=== PATIENT | male | born 1975 | race Caucasian/White ===

== ENCOUNTER 2016-11-30 18:44 | Emergency (ER) | payer MEDICAID ==
[~2016-11-30] VITALS: Ht 167.6 cm; Wt 64.0 kg
[2016-11-30 18:59] VITALS: Ht 167.6 cm; Wt 64.0 kg
[2016-11-30] MEDS ORDERED: LIDOCAINE 1% (MDV) 10 ML INJ INJ STA (21:46)
--- NOTE | 2016-11-30 21:59 | ERD ---
ER Documentation Chief Complaint Date/Time DATE: 11/30/16 TIME: 21:57 Chief Complaint laceration left foot HPI 41-year-old male presents to the laceration on the medial aspect of his left ankle he sustained today with a piece of glass. He is ambulatory. Denies possibility retained foreign body. Pain is mild to moderate. He is not on any blood thinners. Unsure last tetanus vaccination. ROS All systems reviewed and are negative except as per history of present illness. Allergies Allergies: Coded Allergies: No Known Allergy (Unverified , 11/30/16) FmHx Family History: No diabetes Physical Exam Vitals Vital Signs Date Time Temp Pulse Resp B/P Pulse Ox O2 Delivery O2 Flow Rate FiO2 11/30/16 18:59 97.8 71 20 131/83 100 Physical Exam Const: [] Head: Atraumatic Eyes: Normal Conjunctiva ENT: Normal External Ears, Nose and Mouth. Neck: Full range of motion..~ No meningismus. Resp: Clear to auscultation bilaterally Cardio: Regular rate and rhythm, no murmurs Abd: Soft, non tender, non distended. Normal bowel sounds Skin: Left medial ankle has small to centimeter laceration that is superficial, no active bleeding or drainage, no evidence of retained foreign body Results 24 hrs Current Medications Medications (Trade) Dose Ordered Sig/Bhavik Route PRN Reason Start Time Stop Time Status Last Admin Dose Admin Diphtheria/ Tetanus/Acell Pertussis (Adacel) 0.5 ml ONCE ONCE IM 11/30/16 22:00 11/30/16 22:01 Lidocaine HCl (Lidocaine 1% (Mdv) 10 ml) 10 ml ONCE STAT INJ 11/30/16 21:46 11/30/16 21:47 DC Procedures/MDM Patient was given a tetanus vaccination. The skin edges of the laceration were infiltrated with 1% lidocaine . The laceration was irrigated with copious amounts of normal saline. The wound was prepped with Betadine. On examination under direct light, there was no foreign body seen. The laceration was repaired with simple interrupted sutures. After repair, there was no continuing bleeding on repair and there did not appear to be any complication related to repair. The patient tolerated the procedure well and the wound was appropriately dressed and bandaged. I recommended the patient return in 2 days for a wound check and 7-10 days for removal of sutures. Patient counseled regarding my diagnostic impression and care plan. Prior to discharge all questions answered. Pt agrees with treatment plan and understands strict return precautions. Pt is instructed to follow up with primary care provider within 24-48 hours. Precautionary instructions provided including instructions to return to the ER if not improving or for any worsening or changing symptoms or concerns. Departure Diagnosis: Primary Impression: Laceration Condition: Stable SHARRI BEJARANO PA-C Nov 30, 2016 21:59
[2016-11-30] MEDS ORDERED: DIPHTH/TET/ACEL PERTUSS (ADULT) 0.5 ML VIAL IM ONE (22:00)
== END 2016-11-30 22:21 | disposition home or self-care (01) ==
LOC: FTE 18:44
DX: S91.312A Laceration without foreign body, left foot, initial encounter (principal); W25.XXXA Contact with sharp glass, initial encounter; Y92.9 Unspecified place or not applicable; Z23 Encounter for immunization
CPT/HCPCS: 12001; 90471; 90715; Z7502; Z7610

== ENCOUNTER 2016-12-03 12:32 | Emergency (ER) | payer MEDICAID ==
[~2016-12-03] VITALS: Ht 165.1 cm; Wt 98.6 kg
[2016-12-03 12:36] VITALS: Ht 165.1 cm; Wt 98.6 kg
--- NOTE | 2016-12-03 13:08 | ERD ---
ER Documentation Chief Complaint Date/Time DATE: 12/03/16 TIME: 13:04 Chief Complaint WOUND CHECK FOR SUTURES PLACED SATURDAY ON RIGHT FOOT HPI 41 yo male comes in for a laceration repair wound check from a laceration repair 2 days. Patient states that it was from a piece of glass that dropped. Denies fever, drainage, erythema. ROS All systems reviewed and are negative except as per history of present illness. Allergies Allergies: Coded Allergies: No Known Allergy (Unverified , 11/30/16) PMhx/Soc Hx Alcohol Use: No Hx Substance Use: No Hx Tobacco Use: No Physical Exam Vitals Vital Signs Date Time Temp Pulse Resp B/P Pulse Ox O2 Delivery O2 Flow Rate FiO2 12/03/16 12:36 98.6 64 16 129/79 96 Physical Exam General: Well-developed, well-nourished. The patient appears in no acute distress. HEENT: Head is normocephalic, atraumatic. No scleral icterus. Neck: Supple. Nontender. Lungs: Clear to auscultation. Normal air movement. Heart: Regular rate and rhythm. S1 and S2 are normal. No murmurs, gallops, or rubs. Abdomen: Nondistended. Extremities: No clubbing or cyanosis. Moving extremities x 4. No weakness. Neurologic: Alert and oriented 3. No focal deficits. Normal speech and gait. Skin: Left dorsum foot, has a closed 1.5cm with 3 simple interrupted sutures intact. No dehiscence, erythema or drainage Procedures/MDM Wound shows no evidence of infection, foreign body, neurologic injury, vascular injury, open joint or tendon laceration. Patient appropriate for outpatient follow up. Departure Diagnosis: Primary Impression: Encounter for wound re-check Condition: Good Patient Instructions: Wound Check, Lac F/U (No Infection) Additional Instructions: Follow up with your physician to remove the stitches:5-6 days. SAMANTHA PENALOZA PA-C Dec 03, 2016 13:08
== END 2016-12-03 13:07 | disposition home or self-care (01) ==
LOC: FTE 12:32
DX: Z48.01 Encounter for change or removal of surgical wound dressing (principal)
CPT/HCPCS: 99281

== ENCOUNTER 2016-12-08 12:24 | Emergency (ER) | payer MEDICAID ==
[~2016-12-08] VITALS: Ht 162.6 cm; Wt 66.0 kg
[2016-12-08 12:27] VITALS: Ht 162.6 cm; Wt 66.0 kg
--- NOTE | 2016-12-08 15:20 | ERD ---
ER Documentation Chief Complaint Date/Time DATE: 12/08/16 TIME: 15:18 Chief Complaint pt bib self for suture removal, left foot HPI This 41-year-old male comes in for suture removal. He has no pain in no bleeding from the site. He had Edgardo come in for his 2 day wound check for the sutures from a cut on his right foot. ROS All systems reviewed and are negative except as per history of present illness. Allergies Allergies: Coded Allergies: No Known Allergy (Unverified , 11/30/16) PMhx/Soc Hx Miscellaneous Medical Probl: Yes (p sutures to L foot p laceration) Hx Alcohol Use: No Hx Substance Use: No Hx Tobacco Use: No Smoking Status: Never smoker Physical Exam Vitals Vital Signs Date Time Temp Pulse Resp B/P Pulse Ox O2 Delivery O2 Flow Rate FiO2 12/08/16 12:27 98.9 73 16 121/69 97 Physical Exam Const: [] No distress Ext: No cyanosis, or edema, 3 cm laceration right foot with 3 simple interrupted Prolene sutures. No signs of surrounding erythema or infection. Neur: Awake and alert Psych: Normal Mood and Affect Procedures/MDM Suture removal note. 3 sutures simple interrupted were removed with scissors after wiping with alcohol. Steri-Strips were then placed over the wound. No dehiscence, patient told procedure with no complication. Simple suture removal discharging with primary care follow-up as needed. Departure Diagnosis: Primary Impression: Encounter for removal of sutures Condition: Stable Patient Instructions: Suture Removal, No Complication Additional Instructions: Llame al doctor SERAFIN y mark rogers JEFF PARA DENTRO DE 2-3 HOWE.Dgale a la secretaria que nosotros le instruimos hacer esta jeff.Avise o llame si hobbs condicin se empeora antes de la jeff. Regresa aqui si peor o no mejor. HAYDER KEYS DO Dec 08, 2016 15:20
== END 2016-12-08 15:19 | disposition home or self-care (01) ==
LOC: FTE 12:24
DX: Z48.02 Encounter for removal of sutures (principal)
CPT/HCPCS: 99281

== ENCOUNTER 2017-03-04 12:33 | Emergency (ER) | payer SELFPAY ==
[~2017-03-04] VITALS: Wt 63.5 kg
--- NOTE | 2017-03-04 15:22 | ERD ---
ER Documentation Chief Complaint Chief Complaint RIGHT KNEE PAIN AFTER TWISTING KNEE, PT AMBULATORY HPI This 41 yo male presents to ED for evaluation of right knee, pt injured his knee yesterday playing soccer, " twisting " pain with amb, and flexing, pt took IBU for yesterday and it helped with paain, none taken today. 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 ROS All systems reviewed and are negative except as per history of present illness. Medications Home Meds Active Scripts Naproxen* (Naprosyn*) 500 Mg Tablet, 500 MG PO BID Y for PAIN AND/OR INFLAMMATION, #20 TAB Prov:MANGO,BINDU 03/04/17 Hydrocodone/Acetaminophen ([place] 5-325 Tablet) 1 Each Tablet, 1-2 TAB PO Q6H Y for pain greater than 6/10 on pain, #20 TAB Prov:MANGO,BINDU 03/04/17 Allergies Allergies: Coded Allergies: No Known Allergy (Unverified , 11/30/16) PMhx/Soc Medical and Surgical Hx: pt denies Medical Hx, pt denies Surgical Hx Hx Miscellaneous Medical Probl: Yes (p sutures to L foot p laceration) Hx Alcohol Use: No Hx Substance Use: No Hx Tobacco Use: No Smoking Status: Never smoker Physical Exam Vitals Vital Signs Date Time Temp Pulse Resp B/P Pulse Ox O2 Delivery O2 Flow Rate FiO2 03/04/17 17:40 98.2 76 17 128/65 98 Room Air 03/04/17 13:03 100.6 75 17 137/83 96 Physical Exam Const: Well-nourished well-hydrated 41-year-old male patient obvious discomfort no acute distress Eyes: Normal Conjunctiva ENT: Normal External Ears, Nose and Mouth. Neck: Full range of motion..~ No meningismus. Resp: Clear to auscultation bilaterally Cardio: Regular rate and rhythm, no murmurs Abd: Soft, non tender, non distended. Normal bowel sounds Skin: No petechiae or rashes Back: No midline or flank tenderness Lower Extremity - bilateral: Skin: No laceration Compartments: Soft Motor: Full active range of motion hip/ankle/foot normal range of motion of right knee with flexion and extension, Sensation: Intact to light touch FDWS/MF/LF/P surfaces. Bones: Nontender pelvis/proximal tibia/ malleoli/foot, patellar tenderness, LCL tenderness, Joints: Palpable effusion Pulses/Perfusion: 2+ DP, Capillary refill < 2 seconds Neur: Awake and alert Psych: Normal Mood and Affect Results 24 hrs Current Medications Medications (Trade) Dose Ordered Sig/Bhavik Route PRN Reason Start Time Stop Time Status Last Admin Dose Admin Ibuprofen (Motrin) 600 mg ONCE ONCE PO 03/04/17 15:30 03/04/17 15:31 DC 03/04/17 15:31 Procedures/MDM PROCEDURE: Right knee x-ray CLINICAL INDICATION: Knee pain TECHNIQUE: AP, lateral and oblique views of the knee were obtained. COMPARISON: None FINDINGS: There is normal mineralization. No acute fracture or dislocation is seen. There is moderate to severe joint space narrowing, subchondral sclerosis seen within the knee joint. There are associated osteophytes. This is more pronounced in the medial and patellofemoral compartment. There is a moderate right knee joint effusion. There is no significant soft tissue swelling. RPTAT: AA IMPRESSION: Moderate to severe degenerative changes of the right knee, more pronounced in the medial and patellofemoral compartment. Moderate right knee joint effusion. Ligamentous injury is suspected. Further evaluation with MRI is recommended. .Jesse Mendez MD, MD Date Time Electronically viewed and signed by .Jesse Mendez MD, MD on 03/04/2017 15: 57 This 41-year-old male patient presents to emergency department today for evaluation of the right knee injury. Patient reports he was playing soccer yesterday and twisted his knee while on the field, patient reports that he fell , developed pain, was not able to finish playing the game, and has pain and swelling since. Patient is ambulating with a limp, reports no acute distress, treated with ibuprofen yesterday. Emergency room course includes history and physical exam, his for a ligament patient is injury, plan to x-ray knee, ibuprofen prescribed, x-ray as interpreted by radiologist; moderate to severe degenerative changes in the right knee, more pronounced in the medial and patellofemoral compartment. Moderate right knee joint effusion. Ligament tenacious injury is suspected, further evaluation with MRI is read amended. This case discussed with supervising physician Dr. Tao plan to place patient in a knee immobilizer, crutches, patient will receive Naprosyn 500 mg 1 tab p.o. twice daily 10 days for pain, [place] 5/1-2 tabs as needed every 6 hours severe pain, count of 20. Has no primary care physician, instructed to follow- up at [facility]. Demographics provided. Patient is stable with no new complaints during ER course, clinically there is no current evidence to suggest patellar dislocation, tibial plateau injury, DVT, Unger's cyst, or any other emergent condition appearing to require further evaluation or hospitalization. I feel the patient is stable for discharge at this time. I have discussed results, examination findings, the treatment plan with the patient and family present prior to discharge. Indications for emergent reevaluation, side effects of medication were also discussed. All questions were answered. Patient verbalizes understanding and agrees with plan of care. Departure Diagnosis: Primary Impression: Knee injury Encounter type: initial encounter Laterality: right Qualified Code: S89.91XA - Injury of right knee, initial encounter Condition: Good Patient Instructions: Knee Effusion, Knee Immobilizer, Reducing Knee Pain and Swelling Additional Instructions: Thank you for for coming to [facility] for your care today. Please ask your nurse or provider if you have questions about your care today and do not leave until all your questions have been answered. Please use any medications given as directed and follow-up with your doctor (or the doctor you were referred to) in the next 2-3 days. If you do not have a primary care doctor you may follow up at the [facility] (listed below). You may also use motrin and tylenol as needed for fever and/or pain unless instructed otherwise by your provider or nurse. Indications for more urgent follow-up have been discussed, but you may return to the Emergency Department at ANY time for any worrisome or worsening symptoms. If you have abdominal pain, please know that no test or exam you received is perfect and you should follow up within 8 hours for continued pain. If you had any imaging studies today, such as an X-Ray or CT Scan, these studies will be reviewed later by a radiologist. You will be called if there are important findings that were not identified today, so make sure the contact information you provided at registration is correct. If you received any narcotic pain control medicine today, such as Vicodin, Morphine or Dilaudid, your coordination and judgment may be affected for a number of hours. Please do not drive or operate heavy machinery, and you may want someone to assist you at home. If you were given a prescription for narcotic medication, be aware that it is very addictive- use sparingly and only if necessary. BINDU COBIAN Mar 04, 2017 15:22
[2017-03-04] MEDS ORDERED: IBUPROFEN 600 MG TAB PO ONE (15:30)
--- NOTE | 2017-03-04 15:57 | RADRPT ---
PROCEDURE: Right knee x-ray CLINICAL INDICATION: Knee pain TECHNIQUE: AP, lateral and oblique views of the knee were obtained. COMPARISON: None FINDINGS: There is normal mineralization. No acute fracture or dislocation is seen. There is moderate to severe joint space narrowing, subchondral sclerosis seen within the knee joint. There are associated osteophytes. This is more pronounced in the medial and patellofemoral compart ment. There is a moderate right knee joint effusion. There is no significant soft tissue swelling. RPTAT: AA IMPRESSION: Moderate to severe degenerative changes of the right knee, more pronounced in the medial and patello femoral compartment. Moderate right knee joint effusion. Ligamentous injury is suspected. Further evaluation with MRI is recommended. .Jesse Mendez MD, MD Date Time Electronically viewed and signed by .Jesse Mendez MD, MD on 03/04/2017 15:57 .S/
[2017-03-04] MEDS ORDERED: HYDR-906 PO (17:31)
[2017-03-04] MEDS ORDERED: NAPR-260 PO (17:31)
[2017-03-04 17:40] VITALS: BP 128/65; PULSE 76; RESP 17; TEMP 98.2
== END 2017-03-04 17:41 | disposition home or self-care (01) ==
LOC: FTE 12:33
DX: S89.91XA Unspecified injury of right lower leg, initial encounter (principal); X50.9XXA Other and unspecified overexertion or strenuous movements or postures, initial encounter; Y92.9 Unspecified place or not applicable
CPT/HCPCS: 73562